=== PATIENT | male | born 2000 | race Two or more races ===

== ENCOUNTER 2020-12-25 13:22 | Emergency (ER) | payer SELFPAY ==
[~2020-12-25] VITALS: Ht 170.2 cm; Wt 55.8 kg
[2020-12-25 13:32] VITALS: BP 116/77
[2020-12-25] MEDS ORDERED: SODIUM CHLORIDE 0.9% 1,000 ML IV ONE (13:45)
[2020-12-25] MEDS ORDERED: PANTOPRAZOLE 40 MG/10 ML VIAL INJ IV ONE (13:45)
[2020-12-25 14:02] LABS: Basophils # (auto) 0 10 ^3/uL (0-0.2); Basophils % (auto) 0.5 % (0.0-2.0); Eosinophils # (auto) 0 10 ^3/uL (0-0.8); Eosinophils % (auto) 0.5 % (0.0-7.0); Hematocrit 45.1 % (41.0-53.0); Hemoglobin 15.8 g/dL (13.5-17.5); Lymphocytes # (auto) 1.8 10 ^3/uL (0.4-5.4); Lymphocytes % (auto) 23.2 % (10.0-50.0); Mean Corpuscular Hemoglobin 30.8 pg (28.0-32.0); Mean Corpuscular Hgb Conc. 34.9 g/dL (32.0-36.0); Mean Corpuscular Volume 88.2 fL (80.0-100.0); Monocytes # (auto) 0.4 10 ^3/uL (0-1.3); Monocytes % (auto) 5.5 % (0.0-12.0); Neutrophils # (auto) 5.4 10 ^3/uL (1.6-8.6); Neutrophils % (auto) 70.3 % (37.0-80.0); Nucleated Red Blood Cells % 0.1 %; Red Blood Cells 5.12 10^6/uL (4.5-5.90); Red Cell Distribution Width 13.5 % (11.8-14.3); White Blood Cell 7.7 10^3/uL (4.4-10.8)
[2020-12-25 14:15] LABS: Albumin 4.8 g/dL (3.4-5.0); Calcium 9.2 mg/dL (8.5-10.1); Potassium 3.7 mmol/L (3.5-5.1)
[2020-12-25 14:19] LABS: BUN/Creatinine Ratio 16.3; Bilirubin, Total 0.9 mg/dL (0.2-1.0); Total Protein 8.2 g/dL (6.4-8.2)
== END 2020-12-25 15:40 | disposition home or self-care (01) ==
LOC: ER 13:22
DX: K29.70 Gastritis, unspecified, without bleeding (principal)
CPT/HCPCS: 36415; 74176; 80053; 85025; 85049; 96374; 99284; C9113; J7030